=== PATIENT | male | born 1985 | race American Indian/Alaskan Native ===

== ENCOUNTER 2016-12-24 08:56 | Emergency (ER) | payer SELFPAY ==
[2016-12-24 09:03] VITALS: BP 110/73; PULSE 72; TEMP 98; O2SAT 100; BMI 22.6
[2016-12-24 09:12] VITALS: RESP 18
--- NOTE | 2016-12-24 11:50 | ED PDOC ---
HPI: Skin/Bite Injury Time Seen by Provider: 12/24/16 09:37 Chief Complaint (Nursing): Abnormal Skin Integrity Chief Complaint (Provider): "whip" like rash on my skin History Per: Patient History/Exam Limitations: no limitations Onset/Duration Of Symptoms: Days (three) Current Symptoms Are (Timing): Still Present Quality Of Symptoms: Itching Severity: Moderate Pain Scale Rating Of: 0 Additional Complaint(s): Pt. here today complaining of "whip" like rash starting three days ago. Pt. reports he just woke up with a rash that was itchy and red. pt. reports the rash is located on his chest and arm. Pt. reports he has been putting calomine lotion but it has not been helping. Pt. denies any injury, abrasion, I.V. drug use, fever, chills, or night sweats. Pt. does report he had a history of Gonnorrhea 7 years ago which was treated. Pt. states his PMD is in [place], [place] and is here doing contract work for [employer]. Pt. reports this is the first occurrence and that this has not happened before and he is the only one with these symptoms. On ROS, pt. denies any dysuria, hematuria, flank pain, joint pain, limb pain, fever, chills, night sweats, or weight loss. The last Sexual encounter was 2 months ago and not using condoms. Pt. states his immunizations are up to date as far as he knows. Past Medical History Vital Signs: Last Vital Signs Temp 98 F 12/24/16 09:09 Pulse 72 12/24/16 09:09 Resp 18 12/24/16 09:09 BP 110/73 12/24/16 09:09 Pulse Ox 100 12/24/16 12:00 - Medical History PMH: No Chronic Diseases - Surgical History Surgical History: No Surg Hx - Family History Family History: States: Unknown Family Hx - Living Arrangements Living Arrangements: With Friends/Others - Social History Current smoker - smoking cessation education provided: No Ex-Smoker (has not smoked in the last 12 months): No Alcohol: Occasional Drugs: Cannabis - Immunization History Hx Tetanus Toxoid Vaccination: No Hx Influenza Vaccination: No Hx Pneumococcal Vaccination: No - Home Medications Home Medications: Ambulatory Orders Medication Instructions Recorded valACYclovir [Valtrex] 1 gm PO BID #20 tab 12/24/16 - Allergies Allergies/Adverse Reactions: Allergies Allergy/AdvReac Type Severity Reaction Status Date / Time No Known Allergies Allergy Verified 12/24/16 09:09 Review of Systems Skin: Positive for: Rash (See HPI) Physical Exam - Reviewed Vital Signs Reviewed: Yes - Physical Exam Appears: Positive for: Non-toxic, No Acute Distress Skin: Positive for: Rash (+ Papulovesicular rash located on anterior chest and posterior chest in the T2 dermatome) Neck: Positive for: Supple Cardiovascular/Chest: Positive for: Regular Rate, Rhythm Respiratory: Positive for: Normal Breath Sounds. Negative for: Respiratory Distress Back: Positive for: Other (+T2 dermatome papulovesicular rash) Extremity: Positive for: Normal ROM. Negative for: Tenderness, Swelling Neurologic/Psych: Positive for: Alert, legal administrative secretary II-XII (grossly intact), Oriented, Gait (normal) - ECG O2 Sat by Pulse Oximetry: 100 - Progress ED Course And Treament: 31 y.o. male who has had unprotected sex in the past with hx of gonnorhhea that was treated with acute onset herpers zoster starting 3 days ago. Re-evaluation Time: 11:58 Condition: Unchanged Medical Decision Making Medical Decision Makin y.o. male who has had unprotected sex in the past with hx of gonnorhhea that was treated with acute onset herpers zoster starting 3 days ago. to be discharged with valacyclovir 1gram BID x 10 days and subsequently to follow up with [facility] Disposition - Clinical Impression Clinical Impression: Herpes zoster - Patient ED Disposition Is Patient to be Admitted: No Discussed With Dr.: Winnie Jewell - Disposition Referrals: [facility] [Outside] Disposition: Routine/Home Disposition Time: 12:00 Condition: GOOD Prescriptions: valACYclovir [Valtrex] 1 gm PO BID #20 tab Instructions: Shingles (ED)
== END 2016-12-24 12:19 | disposition home or self-care (01) ==
LOC: H.ER 08:56
DX: B02.9 Zoster without complications (principal); Z87.891 Personal history of nicotine dependence